=== PATIENT | male | born 1985 | race Caucasian/White ===

== ENCOUNTER 2018-02-13 20:18 | Inpatient (IN) | payer OTHER ==
[~2018-02-13] VITALS: Ht 180.3 cm; Wt 71.0 kg
[2018-02-13] MEDS ORDERED: DIPH,PERTUSS(ACELL),TET VAC/PF 0.5 ML IM-VACC ONE (20:39)
[2018-02-13] MEDS ORDERED: LIDOCAINE-MPF 1%, 5ML ONE ×2 (20:39→22:14)
[2018-02-13] MEDS ORDERED: L.E.T SOLUTION TP ONE (20:41)
[2018-02-13] MEDS ORDERED: LIDOCAINE-MPF 1%, 5ML INFIL ONE (21:30)
[2018-02-13] MEDS ORDERED: DIPHTHERIA-TETANUS ADULT 0.5ML IM-VACC ONE (22:30)
[2018-02-14] MEDS ORDERED: HYDROcodone/APAP 5/325 TABLET ONE (01:22)
[2018-02-14] MEDS ORDERED: HYDROcodone/APAP 5/325 TABLET PO ONE ×2 (01:30)
[2018-02-14 02:05] VITALS: BP 121/78
[2018-02-14 02:06] VITALS: BP 121/78
[2018-02-14 05:11] LABS: BASOPHILS # (AUTO) 0.06 x10^3/uL (0-0.1); BASOPHILS % (AUTO) 1 % (0-1); EOSINOPHILS # (AUTO) 0.47 x10^3/uL (0-0.4); EOSINOPHILS % (AUTO) 5 % (1-7); LYMPHOCYTES # (AUTO) 3.52 x10^3/uL (1-3.4); LYMPHOCYTES % (AUTO) 33 % (22-44); MD NO; MEAN CORPUSCULAR HEMOGLOBIN 32.7 pg (27.5-34.5); MEAN CORPUSCULAR HGB CONC 34.4 g/dL (33.2-36.2); MEAN CORPUSCULAR VOLUME 95.1 fL (81-97); MEAN PLATELET VOLUME 6.6 fL (7.4-10.4); MONOCYTES # (AUTO) 1.07 x10^3/uL (0.2-0.8); MONOCYTES % (AUTO) 10 % (2-9); NEUTROPHILS # (AUTO) 5.41 x10^3/uL (1.8-6.8); NEUTROPHILS % (AUTO) 51 % (42-75); PLATELET COUNT 329 x10^3/uL (130-400); RED BLOOD COUNT 4.67 x10^6/uL (4.38-5.82); RED CELL DISTRIBUTION WIDTH 13.4 % (9.4-14.8)
[2018-02-14 05:16] LABS: ANION GAP 5 mmol/L (5-15); CALCIUM 8.3 mg/dL (8.5-10.1); CHLORIDE 112 mmol/L (98-107); CREATININE 0.91 mg/dL (0.7-1.3)
[2018-02-14] MEDS ORDERED: LIDOCAINE-MPF 2% ,5ML ONE (05:39)
[2018-02-14 07:32] VITALS: BP 102/60
[2018-02-14 12:48] VITALS: BP 119/71
[2018-02-14 20:10] VITALS: BP 127/74
[2018-02-15 01:54] VITALS: BP 119/75
[2018-02-15 07:15] VITALS: BP 126/82
[2018-02-15 12:54] VITALS: BP 135/84
[2018-02-15] MEDS ORDERED: GLYCOPYRROLATE 0.2MG/1ML, 5ML ONE (13:55)
[2018-02-15] MEDS ORDERED: SUCCINYLCHOLINE 20 MG/ML, 10ML ONE (13:55)
[2018-02-15] MEDS ORDERED: PROPOFOL 10 MG/ML, 20ML ONE (13:55)
[2018-02-15] MEDS ORDERED: ONDANSETRON 2MG/ML, 2ML ONE (13:55)
[2018-02-15] MEDS ORDERED: COCAINE TOPICAL SOLN 4%, 4ML ONE (13:55)
[2018-02-15] MEDS ORDERED: NEOSTIGMINE 1 MG/ML, 10ML ONE (13:55)
[2018-02-15] MEDS ORDERED: OXYMETAZOLINE NASAL SPRAY 0.05%, 15ML ONE (13:55)
[2018-02-15] MEDS ORDERED: CEFAZOLIN 1,000 MG ONE (13:55)
[2018-02-15] MEDS ORDERED: FENTANYL PF 100 MCG/2ML ONE ×3 (13:55→15:40)
[2018-02-15] MEDS ORDERED: MUPIROCIN OINT 2%, 22GM ONE (13:55)
[2018-02-15] MEDS ORDERED: DEXAMETHASONE 4 MG/ML, 1ML ONE (13:55)
[2018-02-15] MEDS ORDERED: EPINEPHRINE 1 MG/ML, 1ML ONE (13:55)
[2018-02-15] MEDS ORDERED: BALANCED SALT OPHTH IRRIG SOLN 18ML ONE (13:55)
[2018-02-15] MEDS ORDERED: LIDOCAINE-MPF 1%, 5ML ONE (13:55)
[2018-02-15] MEDS ORDERED: MIDAZOLAM 1 MG/ML, 2ML ONE (13:56)
[2018-02-15] MEDS ORDERED: ROCURONIUM 10 MG/ML,10ML ONE (14:16)
[2018-02-15] MEDS ORDERED: HYDROcodone/APAP 7.5-325MG/15ML UDC PO PRN (15:00)
[2018-02-15] MEDS ORDERED: ACETAMINOPHEN 325 MG TABLET PO PRN (15:00)
[2018-02-15] MEDS ORDERED: KETOROLAC 30 MG/1 ML IV PRN ×2 (15:00)
[2018-02-15] MEDS ORDERED: morphine SULFATE 10 MG/ML, 1ML IV PRN (15:00)
[2018-02-15] MEDS ORDERED: OXYcodone 5 MG/5 ML ORAL.SOL UDC PO PRN (15:00)
[2018-02-15] MEDS ORDERED: HYDROmorphone 1 MG/ML, 1ML IV PRN (15:00)
[2018-02-15] MEDS ORDERED: MEPERIDINE/PF 25MG/0.5ML IVPush PRN (15:00)
[2018-02-15] MEDS ORDERED: ACETAMINOPHEN 650 MG/20.3 ML UDC ONE (15:40)
[2018-02-15] MEDS ORDERED: OXYcodone 5 MG/5 ML ORAL.SOL UDC ONE (15:41)
[2018-02-15] MEDS: FENTANYL PF 100 MCG/2ML IV PRN ×2 (15:59→16:08)
[2018-02-15 17:30] VITALS: BP 130/84
[2018-02-15] MEDS ORDERED: LACTATED RINGERS 1,000 ML IV SCH (18:00)
== END 2018-02-15 18:22 | disposition home or self-care (01) | DRG 27 ==
LOC: ED 20:37 → EDIP 02-14 01:32 → 4NOR 02-14 01:49
PROVIDERS: ADMIT Otolaryngology Facial Plastic Surgery; ATTEND Otolaryngology Facial Plastic Surgery
PROC: 0NS104Z Reposition Frontal Bone with Internal Fixation Device, Open Approach (ICD-10-PCS; principal; 2018-02-15 14:00)
DX: S02.19XA Other fracture of base of skull, initial encounter for closed fracture (principal); G89.11 Acute pain due to trauma; S01.81XA Laceration without foreign body of other part of head, initial encounter; S02.40DA Maxillary fracture, left side, initial encounter for closed fracture; Y08.89XA Assault by other specified means, initial encounter; Y93.89 Activity, other specified; Y92.89 Other specified places as the place of occurrence of the external cause; Y99.8 Other external cause status
CPT/HCPCS: 12011; 12053; 36415; 70450; 70486; 71045; 80048; 85025; 90471; 90714; 93005; C1713; J0171; J0690; J1100; J2250; J2405; J2704; J2710; J3010; J3490; J0330